=== PATIENT | female | born 1955 | race African-American/Black ===

== ENCOUNTER 2018-11-14 23:10 | Inpatient (IN) | payer OTHER ==
[~2018-11-14] VITALS: Ht 160 cm; Wt 113.4 kg
--- NOTE | ~2018-11-14 | O ---
[facility] [place] [address] OPERATIVE REPORT Name: MADI ELLIOTT KRYSTAL Room #: 451-P [facility] IN M.R.#: [id number] Admission: 11/15/18 Attend Phys: Winifred Colbert Discharge: Date of : 59 Report #: [id number] THIS REPORT FOR: //name// CC: FAM unknown Winifred Sayra Luna DATE OF SERVICE: 11/15/2018 PREOPERATIVE DIAGNOSIS: Left trimalleolar ankle fracture dislocation. POSTOPERATIVE DIAGNOSIS: Left trimalleolar ankle fracture dislocation. PROCEDURE: 1. ORIF, left medial and lateral malleolus. 2. Closed treatment posterior malleolus fracture. SURGEON: Delano Luna MD. FACILITY ENVIRONMENTAL TECHNICIAN: Trish Martinez PA-C INDICATION FOR FACILITY ENVIRONMENTAL TECHNICIAN: Throughout the case, extensive retraction and manipulation of the ankle was required. This was afforded to me by my commercial lending assistant. ANESTHESIA: General endotracheal. IMPLANTS: Synthes 8-hole one-third tubular plate for lateral malleolus fracture fixation and cancellous screws x 2 for medial malleolus for fracture fixation. TOURNIQUET TIME: Approximately 50 minutes. COMPLICATIONS: None. SPECIMENS: None. CONDITION UPON LEAVING THE OPERATING ROOM: Stable. 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 After discussion with her, she elected for ORIF. DESCRIPTION OF PROCEDURE: Risks, benefits, alternatives, complications were discussed in detail with the patient including but not limited to risk of anesthesia, risk of damage to nerves, arteries, blood vessels, risk for [facility] [address] [place] [address] OPERATIVE REPORT Name: MADI ELLIOTT [place] Room #: 451-P ADM IN M.R.#: [id number] Admission: 11/15/18 Attend Phys: Winifred Colbert Discharge: Date of : 59 Report #: [id number] infection, bleeding, risk for malunion, nonunion, need for reoperation. Informed consent was obtained from the patient. The left ankle was appropriately marked in the preoperative holding area. IV Ancef was given for preoperative antibiotics. She was brought to the operating room and placed in supine position on operating room table. LMA anesthesia was induced. General endotracheal anesthesia was induced without complication. Tourniquet was placed on the left thigh. Left lower extremity was prepped and draped in normal sterile fashion. Timeout was performed properly identifying the patient and procedure as well as the instrumentation and implants. All in the operating room were in agreement. Left lower extremity was exsanguinated, tourniquet was inflated. Tourniquet time was approximately 50 minutes. Standard approach to the lateral malleolus was made with a 10 blade longitudinally and dissection was taken sharply to the fibula. Fibula was dissected anteriorly and posteriorly and the fracture was identified. This is a Muniz C level fracture, and the fracture was held reduced with [id number]-[id number] reduction forceps. An 8-hole one-third tubular plate was then placed on the lateral aspect of the fibula and 3 cortical screws above and below the fracture were placed. After this, attention was turned to the medial malleolus fracture. An incision was made with 10 blade centered over the medial malleolus, and dissection was taken down sharply to the medial malleolus. Fracture site was cleaned out, held reduced with qfvvw-qa-wwhyn reduction forceps. Two 50 mm, 4.0 cancellous screws were then placed up into the medial malleolus for fracture fixation. After this, fluoroscopic imaging was brought in to verify adequate fracture reduction and placement of hardware as was the case. There was a small posterior malleolus fracture that was less than 25% of the joint line, and this was left alone. Intraoperative cotton as well as external rotation test were performed and showed to have a stable syndesmosis. The wounds were thoroughly irrigated with normal saline. Deep fascia was closed with 0 Vicryl, skin was closed with 2-0 Vicryl and 3-0 nylon. Soft dressing of Xeroform, 4 x 4's, Webril and a short leg splint were applied. The patient tolerated this procedure well and went to recovery room under care of anesthesia postoperatively. By: [id number] Delano Luna MD /nt
--- NOTE | ~2018-11-14 | HC ---
[facility] [place] [address] CONSULTATION Name: LEXIMADI KRYSTAL Room #: 451-P ADM IN M.R.#: [id number] Admission: 11/15/18 Attend Phys: Winifred Colbert Discharge: Date of : 59 Report #: [id number] THIS REPORT FOR: //name// CC: FAM unknown Winifred Luna DATE OF SERVICE: 11/15/2018 REASON FOR CONSULTATION: Left ankle fracture. HISTORY OF PRESENT ILLNESS: The patient is a 63-year-old female who was at a friend's house and was drinking to celebrate her birthday. She was walking outside and tripped and fell, twisting her left ankle, brought to the Emergency Room, found to have an ankle fracture dislocation. She had a closed reduction in the Emergency Room and has been admitted for definitive treatment. PAST MEDICAL HISTORY: Hypertension, alcohol intoxication, epigastric abdominal pain, left knee osteoarthritis, obesity. She has had an aortic aneurysm that has been repaired; this was in 2016, a recent breast cancer with lumpectomy and radiation treatment. MEDICATIONS: Have been reviewed on the chart. PHYSICAL EXAMINATION: GENERAL: This is a well-developed, well-nourished female, in no acute distress. She is alert and oriented, pleasant, cooperative with exam. EXTREMITIES: Examination of left lower extremity shows her to have a short leg splint in place. She can wiggle her toes and has sensation to light touch. Splint was not taken down. DIAGNOSTIC DATA: X-ray examination of the left ankle shows her to have a left Muniz C fibular fracture with medial malleolus fracture and a small posterior malleolus fracture that initially was dislocated and now is reduced. ASSESSMENT: Left trimalleolar ankle fracture dislocation with syndesmosis injury. PLAN: Discussed with her treatment options. I am recommending that we do ORIF of her ankle this morning. We will have her on for around 10:30 or 11:00 this morning. She is to continue to be n.p.o. Risks, benefits, alternatives, complications were discussed with her. She is understanding and wishes to proceed. [facility] [address] [place] [address] CONSULTATION Name: MADI ELLIOTT [place] Room #: 451-P [facility] IN M.R.#: [id number] Admission: 11/15/18 Attend Phys: Winifred Colbert Discharge: Date of : 59 Report #: [id number] Thank you for allowing us to participate in care of the patient. By: [id number] Delano Luna MD /manisha
[~2018-11-14 23:10] MED LIST: ACCURETIC 20-11 EACH PO; ACETAMINOPHEN325 M1 PO; CADUET 10 MG-11 EACH PO; COLACE 100 MG100 MG PO; HTN MED; HYDROCODON-ACE1 EAC7 PO; IBUPROFEN 600600 M1 PO; IBUPROFEN 800800 MG PO; LISINOPRIL10 MG PO; NEXIUM40 MG PO; NORCO 5-325 TA1 EACH PO; PERCOCET 5-3251 EACH PO; PREDNISONE 20 M20 MG PO; SENNA PO
[2018-11-14 23:11] VITALS: BP 218/106
[2018-11-15] VITALS (10 sets, daily range): BP systolic 117–233; BP diastolic 59–142
[2018-11-15 01:02] LABS: HEMATOCRIT 39.8 % (37.0-47.0); HEMOGLOBIN 13.1 gm/dL (12.0-15.0); MCH 30.7 pg (26.0-34.0); MCHC 32.8 g/dL (28.0-37.0); MCV 93.5 fL (80.0-100.0); RBC 4.26 mil/uL (4.20-5.00); RDW 15.5 % (10.5-14.5)
[2018-11-15 01:07] LABS: AMP/METHAMP Negative (Negative); BARBITURATES Negative (Negative); BENZODIAZEPINES Negative (Negative); COCAINE Negative (Negative); METHADONE Negative (Negative); OPIATES Negative (Negative); PCP Negative (Negative)
[2018-11-15 01:10] LABS: CALCIUM 9.3 mg/dL (8.5-10.1); CREATININE 0.8 mg/dL (0.6-1.0); POTASSIUM 3.6 mmol/L (3.5-5.1)
[2018-11-15 01:44] LABS: APTT 25.8 Seconds (24.5-32.8); PROTIME 9.6 Seconds (9.3-11.4)
--- NOTE | 2018-11-15 02:25 | NUR ---
100ML NS OF 500ML USED FO4R PROCEDURE
--- NOTE | 2018-11-15 06:26 | NUR ---
PT ARRIVED TO FLOOR BY TRANSPORT DUE TO PTS MENTAL STATUS LITTLE INFORMATION PROVIDED FOR HEALTH HX PT SLEPT MOST OF THE NIGHT NO ISSUES OVERNIGHT.
[2018-11-15] MEDS ORDERED: CLONIDINE HCL0.2 M2 PO (06:45)
[2018-11-15] MEDS ORDERED: CARVEDILOL3.125 MG PO (06:45)
[2018-11-15] MEDS ORDERED: COZAAR 25 MG TA25 M1 PO (06:45)
--- NOTE | 2018-11-15 18:19 | NUR ---
PT HAD SURGERY ON ANKLE THIS MORNING, RETURNED TO UNIT THIS AFTERNOON. PT WAS EXTREMELY NAUSEOUS UPON RETURN, MEDICATION OFFERED RELIEF AFTER SOME TIME. PT'S BP HAS BEEN ELEVATED SINCE RETURN, NOTIFIED PHYSICIAN AND MEDS GIVEN. BP HAS DECREASED HOWEVER IT STILL REMAINS ELEVATED (170'S). WILL CONTINUE TO MONITOR.
--- NOTE | 2018-11-15 19:37 | NUR ---
PT'S BP CONTINUES TO BE ELEVATED. CALLED SALES DEPARTMENT CLERK AND IMPLEMENTED NEW ORDERS FOR CONTROL.
[2018-11-16 02:39] VITALS: BP 177/98
[2018-11-16 04:34] VITALS: BP 159/83
[2018-11-16 05:40] LABS: HEMATOCRIT 36.8 % (37.0-47.0); HEMOGLOBIN 11.7 gm/dL (12.0-15.0)
--- NOTE | 2018-11-16 06:24 | NUR ---
Assumed care at 1840. Gave pt some hydralazine for sbp greater than 160. SBP has been consistantly staying in 170s. Pt denies chest pain. Pt refused fluids because she noticed swelling on the left hand. Dressing on left ankle CDI. No identified needs at the moment. Call light within reach. Will continue to monitor.
[2018-11-16 07:43] VITALS: BP 152/68
--- NOTE | 2018-11-16 08:44 | EKG ---
[facility] [place] [address] [place] [address] ELECTROCARDIOGRAM REPORT Name: LEXIMADIKRYSTLE ZAYASSA Room #: 451-P ADM IN M.R.#: [id number] Admission: 11/15/18 Attend Phys: Winifred Colbert Discharge: Date of : 59 Report #: [id number] THIS REPORT FOR: //name// [facility] ED Test Date: 2018-11-15 Test Time: 00:57:42 Pat Name: MADI ELLIOTT Department: Room: [facility] Gender: F Medical Underwriter: DOROTHY : 1955 Requested By: Bret Sainz Order Number: [id number] MD: Jose Esqueda Measurements Intervals Clark Rate: 69 P: 49 NM: 172 QRS: 21 QRSD: 91 T: 85 QT: 423 QTc: 454 Interpretive Statements Sinus rhythm Anteroseptal infarct, age indeterminate Compared to ECG 12/14/2015 16:07:45 Septal Q waves are now present Sinus tachycardia no longer present Electronically Signed On 11-16-2018 8:44:32 CUSTOMER SERVICE SALES CONSULTANT by Jose Esqueda [email or web address] <ELECTRONICALLY SIGNED> By: Jose Esqueda MD, [facility] 11/16/18 0844 0057 0057 Jose Esqueda MD, [facility] /EPI
--- NOTE | 2018-11-16 13:32 | NUR ---
PT ADMITTED RELATED TO LT ANKLE FX S/P ORIF. CM REVEIWED CHART AND SPOKE WITH CARE TEAM. CM MET WITH PT AT BEDSIDE THIS DAY. PT IS A&O X4. CM ROLE INTRODCUED. PT INDICATED SHE LIVES IN A HOUSE WITH HER SPOUSE, SISTER, AND GRANDSON. 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 PT INDICATED HER PCP IS DR. KOVACS. PT INDICATED NO DME OR HH HX. PT INDICATED SHE WAS INTERESTED IN GOING FOR A POST ACUTE CARE STAY UPON DC. CM INDICATED THAT BECAUSE OF PT'S INSURANCE SHE WOULD BE ABLE TO GO FOR ACUTE REHAB. PT INDICATED SHE WAS INTERESTED IN 5N. CONSULT WAS ENTERED. CM TO FOLLOW INDICATED WITH DC PLANNING.
--- NOTE | 2018-11-16 15:22 | NUR ---
[facility] ASSESSED PT FOR POSSIBLE ADMISSION AND DETERMINED THAT PT WOULD BE A GOOD CANDIDATE. THEY HAVE SUBMITTED FOR AUTH THROUGH MEDICAID.
--- NOTE | 2018-11-16 15:55 | NUR ---
[facility] RECIEVED MEDICAID AUTH FOR PT TO ADMIT THIS EVENING. CM NOTIFIED PT AND SHE IS AWARE AND AGREEABLE. NO OTHER CM INTERVENTION INDICATED AT THIS TIME. REPORT TO BE CALLED TO .
[2018-11-16] MEDS ORDERED: COREG6.25 MG PO (15:58)
[2018-11-16] MEDS ORDERED: COLACE100 MG PO (15:58)
[2018-11-16 16:28] VITALS: BP 132/56
[2018-11-16 17:28] VITALS: BP 132/56
== END 2018-11-16 17:50 | DRG 493 ==
LOC: ER 23:10 → EROBS 11-15 01:25 → 4W 11-15 02:33
PROVIDERS: Emergency Medicine; Orthopaedic Surgery; ADMIT Hospitalist
PROC: 0QSHXZZ Reposition Left Tibia, External Approach (ICD-10-PCS; principal; 2018-11-15)
PROC: 0QSH04Z Reposition Left Tibia with Internal Fixation Device, Open Approach (ICD-10-PCS; principal; 2018-11-15)
PROC: 0QSKXZZ Reposition Left Fibula, External Approach (ICD-10-PCS; principal; 2018-11-15)
PROC: 0QSK04Z Reposition Left Fibula with Internal Fixation Device, Open Approach (ICD-10-PCS; principal; 2018-11-15)
PROC: 2W6 Placement, Anatomical Regions, Traction (ICD-10-PCS; principal; 2018-11-15)
DX: S82.852A Displaced trimalleolar fracture of left lower leg, initial encounter for closed fracture (principal); Z68.41 Body mass index [BMI] 40.0-44.9, adult; Y93.01 Activity, walking, marching and hiking; W01.0XXA Fall on same level from slipping, tripping and stumbling without subsequent striking against object, initial encounter; I10 Essential (primary) hypertension; F10.120 Alcohol abuse with intoxication, uncomplicated; K21.9 Gastro-esophageal reflux disease without esophagitis; M17.12 Unilateral primary osteoarthritis, left knee; E66.9 Obesity, unspecified; Z85.3 Personal history of malignant neoplasm of breast; Z92.3 Personal history of irradiation; Z85.41 Personal history of malignant neoplasm of cervix uteri; Y92.89 Other specified places as the place of occurrence of the external cause; Y99.8 Other external cause status; Z79.899 Other long term (current) drug therapy
CPT/HCPCS: 10045; 50010; 50101; 50386; 51131; 51272; 56527; 56528; 56667; 57091; 57181; 62110; 62900; 65130; 70005

== ENCOUNTER 2018-11-16 16:15 | Inpatient (IN) | payer OTHER ==
[~2018-11-16] VITALS: Ht 160 cm; Wt 99.8 kg
[~2018-11-16 16:15] MED LIST changes: +CARVEDILOL3.125 MG PO; +CLONIDINE HCL0.2 M2 PO; +COLACE100 MG PO; +COREG6.25 MG PO; +COZAAR 25 MG TA25 M1 PO
[2018-11-16 17:45] VITALS: BP 142/63
[2018-11-16 18:41] VITALS: BP 142/63
--- NOTE | 2018-11-16 20:23 | NUR ---
GOT REPORT FROM ARMIN (4W) OVER PHONE. PT ARRIVED ON BEDSIDE CHAIR ON UNIT. PT A&O X4. PT STATES NO PAIN AT THE TIME. PT HAS NO S/S OF DISTRESS. PT ORIENTED TO UNIT AND STAFF. PT ADM PACKET GIVEN AND FALL CONTRACT SIGNED. PT FAMILY AT BEDSIDE. PT L LEG CAST C/D/I. PT LOVE IN PLACE. PT CALL LIGHT WITHIN REACH AND PT CONTINUES TO BE MONITORED FOR SAFETY.
[2018-11-16 21:02] VITALS: BP 121/51
--- NOTE | 2018-11-17 01:36 | NUR ---
PT ALERT AND ORIENTED X 4. TRANSFERRED TO BED AT HS WITH MAX ASSIST X 2. NWB LLE. CAST INTACT TO LLE. TOES WARM, PINK, MOBILE. DENIES NUMBNESS AND TINGLING. LLE ELEVATED ON PILLOWS. ICE TO LLE. BLOOD PRESSURE 121/51 AT HS. PT REFUSED CLONIDINE. LOVE PATENT DRAINING ADEQUATE AMTS CLEAR YELLOW URINE. PT C/O PAIN IN HEAD AND NECK. PERCOCET GIVEN ORDERED. PT SLEEPING UPON REASSESSMENT. FAMILY MEMBER HERE DURING THE NIGHT. BED ALARM ON FOR SAFETY. PT APPEARS TO BE SLEEPING ON HOURLY ROUNDS.
[2018-11-17 02:03] VITALS: BP 121/51
[2018-11-17 06:31] LABS: HEMOGLOBIN 11.1 gm/dL (12.0-15.0); MCH 29.8 pg (26.0-34.0); MCHC 31.8 g/dL (28.0-37.0); MCV 93.7 fL (80.0-100.0); RBC 3.74 mil/uL (4.20-5.00); RDW 15.3 % (10.5-14.5); WBC 9.4 thou/uL (4.0-11.0)
[2018-11-17 06:38] LABS: CALCIUM 9.1 mg/dL (8.5-10.1); CREATININE 0.9 mg/dL (0.6-1.0)
[2018-11-17 07:54] VITALS: BP 182/110
[2018-11-17 10:22] VITALS: BP 115/65
--- NOTE | 2018-11-17 11:40 | NUR ---
cm visited with pt at bedside, eyes open and closed during visit. intro to cm, team meeting and dcp. " live home with , son and grandson, independent when feeling ok. 7 steps up to house, 5 steps up to bedroom. manage own medication, drive vehicle. will cont following as needed for dc needs.
--- NOTE | 2018-11-17 14:04 | NUR ---
team meeting, reccomendation : re team, cont nwb rt ankle
[2018-11-17 19:54] VITALS: BP 135/80
--- NOTE | 2018-11-17 20:19 | NUR ---
ASSUMED CARES AT 0700. PT AWAKE, ALERT AND ORIENTED*4. C/O LLE PAIN. LLE CAST REMAIN INTACT, NO DRAINAGE. LLE TOES CAP REFILL <3SEC, MILD EDEMA AROUND FOOT OF LLE. VITALS REMAIN STABLE. IV DC'D. LOVE DC'D PER PHYSICIAN ORDER, TO BEGIN VOIDING TRIAL. BP ELEVATED THIS AM, BP LOWERING MEDS ADMINISTERED, BP STABLE AFTER. UP WITH 1 PERSON MAX ASSIST TRANSFER. Q1H VISUAL CHECKS. CALL LIGHT WITHIN REACH. [facility]
--- NOTE | 2018-11-18 04:04 | NUR ---
ASSUMED CARE OF PT AT 1915. PT ALERT AND ORIENTED X4. PIVOT TRANSFER TO WHEELCHAIR, THEN PIVOT TO TOILET. CAST INTACT ON LLE; TOES PINK AND WARM WITH GOOD CAP REFILL. PT ABLE TO MOVE TOES EASILY, GOOD SENSATION. CONTINUES NWB LLE. FAMILY MEMBER AT BEDSIDE THROUGH THE NIGHT. VOIDING PER TOILET WITHOUT DIFFICULTY. HAS BEEN AWAKE MOST OF THE NIGHT THUS FAR, STATING THAT IS HER NORMAL ROUTINE. CHECKED ON HOURLY ROUNDS. BED ALARM ON.
[2018-11-18 08:40] VITALS: BP 156/90
--- NOTE | 2018-11-18 12:23 | NUR ---
ASSUMED CARE AT 0700. PATIENT IS ALERT AND ORIENTED X4. RESEARCH CENTER PARTNER ARE EQUAL. PATIENT HAS SPINT/CAST ON HER LEFT LOWER EXTREMITITY. DO NOT CHANGE OR DO ANYTHING TO HER SURICAL SITE. [facility] WILL SEE HER IN 14 DAYS. LUNGS ARE CLEAR. ABD IS SOFT WITH BSX4. UP IN W/C FOR BREAKFAST. FALL AND SAFETY PROTOCOLS IN PLACE. DENIES ANY PAIN AT THIS TIME. CONTINUES TO PROGRESS SLOWLY TOWARDS D/C GOALS. WILL CONTINUE TO MONITER. FAMILY AT BEDSIDE.
--- NOTE | 2018-11-18 14:44 | NUR ---
Patient participated in community reintegration on 11/18/18 with PHYSICAL THERAPY. Refer to documentation by PT.
[2018-11-18 17:00] VITALS: BP 122/63
[2018-11-18 19:45] VITALS: BP 121/72
[2018-11-18 21:05] VITALS: BP 137/67
--- NOTE | 2018-11-19 03:53 | NUR ---
ASSUMED CARE OF PT AT 1915. PT ALERT AND ORIENTED X4. CAST INTACT ON LLE. TOES ON RIGHT FOOT ARE WARM TO TOUCH, PINK WITH GOOD CAP REFILL. PT ABLE TO MOVE TOES EASILY. PIVOT TRANSFERS TO WHEELCHAIR AND TO TOILET WITH ASSIST OF ONE USING GAIT BELT. OXYCODONE GIVEN PO FOR PAIN. C/O INDIGESTION, ORDER FOR TUMS OBTAINED. CHECKED ON HOURLY ROUNDS. FALL PRECAUTIONS IN PLACE.
[2018-11-19 08:38] VITALS: BP 142/84
--- NOTE | 2018-11-19 14:47 | NUR ---
ASSUMED CARE AT 0700. PATIENT IS ALERT AND ORIENTED X4. REPORTED DIDN'T SLEEP WELL LAST NIGHT. C/O LEFT ANKLE FX 8/10, PRN PAIN MED. PAIN IS 3/10 NOW. REASSESSMENT PER CHART. EXECUTIVE KITCHEN MANAGER ARE EQUAL. PATIENT HAS SPLINT/CAST ON HER LEFT LOWER EXTREMITITY. TOE WARM, PINK, HAS A GOOD CAP REFILL. DO NOT CHANGE OR DO ANYTHING TO HER SURICAL SITE PER [facility]. LUNGS ARE CLEAR. ABD IS SOFT WITH BSX4. UP IN W/C FOR MEALS. FALL AND SAFETY PROTOCOLS IN PLACE. PIVOT TRANSFER CHAIR<>BED, AND ASSIST TO BATHROOM. HAD BM THIS AM. OFFERED SUPPORTIVE CARE. ENCOURAGED PT TO VOICE HER NEEDS. NOTIFIED CANDIDO THAT PT NEEDS SLEEP MED. TRAZODONE ORDER OBTAINED. WILL GIVE REPORT TO NIGHT NURSE TO MONITOR SLEEP AND GIVE MED ORDRED. MEDS GIVEN, LAB REVIEWED. HER GOAL IS TO CONTINUE TO PROGRESS TOWARDS D/C GOALS. WILL CONTINUE TO MONITOR. FAMILY AT BEDSIDE.
[2018-11-19 20:20] VITALS: BP 129/70
--- NOTE | 2018-11-20 05:26 | NUR ---
PATIENTS CARES WERE ASSUMED AT SHIFT CHANGE. PATIENT WAS ASSESSED AND MEDS WERE PASSED. PATIENT DID SLEEP MOST OF THE SHIFT IN THE CHAIR IN HER ROOM. PATIENT STATED IT WAS MORE COMFORTABLE. HOURLY ROUNDING WAS DONE. PATIENT DID APPER TO BE SLEEPING. THE BED ALARM WAS ON AND THE BE IS IN A LOW AND LOCKED POSITION.
[2018-11-20 09:24] VITALS: BP 146/80
--- NOTE | 2018-11-20 10:24 | NUR ---
ASSUMED CARE AT 0700. PATIENT IS ALERT AND ORIENTED X4. REPORTED SLEEP BETTER BUT WANTS TO INCREASE TRAZODONE. C/O LEFT ANKLE FX 8/10, PRN PAIN MED. PAIN IS 5/10 NOW. C/O RIGHT LEG PAIN 9/10 FROM ARTHRITIS, REQUESTS FOR VOLARENE GEL. REASSESSMENT PER CHART. RN LACTATION CONSULTANT ARE EQUAL. PATIENT HAS SPLINT/CAST ON HER LEFT LOWER EXTREMITITY. TOE WARM, PINK, HAS A GOOD CAP REFILL. DO NOT CHANGE OR DO ANYTHING TO HER SURICAL SITE PER [facility]. LUNGS ARE CLEAR. ABD IS SOFT WITH BSX4. UP IN RECLINER. HAD PT THIS AM AND TOLERATE PAIN THIS AM. FALL AND SAFETY PROTOCOLS IN PLACE. PIVOT TRANSFER CHAIR<>BED, AND ASSIST TO BATHROOM. OFFERED SUPPORTIVE CARE. VSS ON RA. ENCOURAGED PT TO VOICE HER NEEDS. NOTIFIED CANDIDO TO INCREASE TRAZODONE AND ORDER FOR VOLARENE GEL. HER GOAL IS TO WORK ON HER INDEPENDENT SO SHE CAN TAKE CARE OF HERSELF. CONTINUE TO PROGRESS TOWARDS D/C GOALS. WILL CONTINUE TO MONITOR.
[2018-11-20 20:28] VITALS: BP 138/63
--- NOTE | 2018-11-21 05:30 | NUR ---
ASSUMED CARE OF PATIENT AROUND 1900. PATIENT IN CHAIR FOR MOST OF SHIFT, MOVED TO BED AROUND 0200. PASSING FLATUS BUT NOT READY FOR A BM YET. C/O ARTHRITIS IN BOTH KNEES, RIGHT WORSE THAN LEFT. PAIN MEDICATION ADMINISTERED AROUND 2200, PATIENT HAS NOT REQUESTED ANY SINCE. PATIENT AMBULATES W/ MINIMAL ASSISTANCE, ABLE TO FOLLOW WIEGHT BEARING PRECAUTIONS. PATIENT IS PROGRESSING TOWARD GOALS, WILL CONTINUE TO MONITOR.
[2018-11-21 08:46] VITALS: BP 135/72
--- NOTE | 2018-11-21 11:01 | NUR ---
ASSUMED CARE AT 0700. PATIENT IS ALERT AND ORIENTED X4. PATIENT MOVES UPPER EXTREMITIES. PATIENT HAS LEFT L.E. CAST TO HER ANKLE. PATIENT IS NON-WT BEARING ON LEFT ANKLE. LUNGS ARE CLEAR. ABD IS SOFT WITH BSX4. UP IN BED FOR BREAKFAST. PATIENT IS UP WITH WALKER, GAIT BELT AND ASSIST OF1 STAFF TO STAND PIVOT, AND SIT. FALL AND SAFETY PROTOCOLS IN PLACE. TOOK PRN PAIN MED FOR LEFT ANKLE PAIN. UP IN W/C AND OUT WITH P.T. IN THE HALLWAY. CONTINUES TO PROGRESS SLOWLY TOWARDS D/C GOAL. WILL CONTINUE TO MONITER
--- NOTE | 2018-11-21 12:36 | NUR ---
Davis NOTIFIED THIS TRAINING DEVELOPMENT DIRECTOR THAT THE PATIENT WHILE IN PARALLEL BARS WENT DOWN TO HER KNEES. NO INJURY NOTED. PATIENT BACK TO HER ROOM AND UP IN HER RECLINER FOR LUNCH. PRN PAIN MED GIVEN FOR KNEE PAIN. VOLTARIN GEL APPLIED TO KNEES BILATERALLY. WILL CONTINUE TO [facility]SON[facility].
[2018-11-21 20:08] VITALS: BP 157/58
--- NOTE | 2018-11-22 03:46 | NUR ---
Assumed care of pt at 1900. Pt alert and oriented x4. Non-weightbearing on left ankle. Pt refused hs clonidine. Pt pivots to wheelchair, and from wheelchait pivots to toilet. Pt calls appropriately. Will continue to monitor.
[2018-11-22 09:15] VITALS: BP 137/60
[2018-11-22 19:20] VITALS: BP 160/67
--- NOTE | 2018-11-22 19:50 | NUR ---
ASSUMED CARE OF PT AT 0715. PT IS A&OX4. IS ON ROOM AIR. IS STABLE. REPORTS PAIN IN BILAT KNEES & LEFT ANKLE THAT IS BEING MANAGED WITH PAIN MEDS. CAST ON RLE. TOES, COLOR APPROPRIATE FOR RACE. IS ABLE TO WIGGLE & HAS FEELING. EDEMA PRESENT IN BILAT FEET. IS UP WITH 1 ASSIST, GB, STAND PIVOT TO BATHROOM. FALL PRECAUTIONS & HOURLY ROUNDING MAINTAINED. LABS & VITALS REVIEWED. WILL CONTINUE TO MONITOR.
--- NOTE | 2018-11-22 23:57 | NUR ---
PT ASSESSMENT COMPLETED AND VSS. MEDS GIVEN ORDERED AND WELL TOLERATED. UP TO THE BATHROOM WITH ASST/GAIT/PIVOT/WHEELCHAIR - NWB LEFT FOOT. SLEEPING WELL. PRN PAIN MEDICATION HELPFUL. WILL CONTINUE TO MONITOR FREQUENTLY.
--- NOTE | 2018-11-23 07:17 | HC ---
[facility] [place] [address] [place] [address] CONSULTATION Name: MADI ELLIOTT Room #: 512-P ADM IN M.R.#: [id number] Admission: 11/16/18 Attend Phys: Gabriele Duque MD Discharge: Date of : 59 Report #: [id number] THIS REPORT FOR: //name// CC: Gabriele Duque [facility] unknown DATE OF SERVICE: 11/21/2018 NEUROBEHAVIORAL STATUS EXAMINATION ATTENDING PHYSICIAN: Gabriele Duque MD TACKING MACHINE OPERATOR: Curtis Larose, PhD CLINICAL PRESENTATION: The patient is a 63-year-old female admitted to rehabilitation unit at [facility] for evaluation and treatment of a left trimalleolar fracture. The patient was out celebrating a birthday of a friend, was intoxicated and fell on the lawn. She is reported to have twisted her ankle and was unable to stand. The patient reports that her friend was unable to lift her in a standing position and that she then rolled to her car. Emergency assistance was obtained and she was subsequently brought into the hospital through the Emergency Room. PAST MEDICAL HISTORY: Breast cancer, hernia repair, status post left lumpectomy with radiation treatment, aortic dissection repaired in 2015, cervical cancer with cervical conization, hypertension, GERD and history of breast biopsy. Her admitting diagnosis to the rehabilitation unit is a left trimalleolar fracture, status post open reduction and internal fixation on 11/15/2018, no weightbearing on her left lower extremity, gait instability, hypertension, initial alcohol intoxication, now resolved; history of aortic dissection, morbid obesity and gastroesophageal reflux disease. A complete description of her medical condition and history can be found in her medical record. Neuropsychological consultation was requested to provide assistance in the assessment of cognitive and emotional status and to provide recommendations and services. Prior to this most recent admission, she was living independently with her in their home. The patient has 2 children. 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 She reports having gone on disability in 2016 following an aortic dissection. She reports a history of treatment for depression that involved the use of an antidepressant. Infrequent use of alcohol is reported by the patient, however, her self reported use of alcohol is of uncertain accuracy as she reported that the evening that she fell, her consumation of alcohol was in the car after she rolled down the lawn after the libertarian and not [facility] [address] [place] [address] CONSULTATION Name: MADI ELLIOTT [place] Room #: 512-P [facility] IN M.R.#: [id number] Admission: 11/16/18 Attend Phys: Gabriele Duque MD Discharge: Date of : 59 Report #: [id number] during the libertarian. She stated that a friend living with her is an alcoholic. TECHNIQUES UTILIZED: Clinical interview, review of medical records, staff consultation and behavioral observation, mini mental status from 2 standard version and clock drawing. EXAMINATION FINDINGS: The patient is alert and cooperative with the assessment. She accurately described events surrounding her admission. There is no evidence of aphasia. Her thoughts are logical and goal oriented. There are no auditory or visual hallucinations. She does not report amnesia surrounding the event. She has an accurate memory of events immediately preceding, following and during her initial hospitalization. Poor judgment is evident in regard to her rolling to her car rather than obtaining medical help in the field. She describes her symptoms to include inconsistent sleep, anxiety and depression. Continued problems with pain are reported. She does not describe difficulty with appetite or energy level. Her performance on the MMSE 2 brief version is within normal limits with a raw score of 15/16. MMSE 2 standard version within normal limits with a raw score of 28/30. The patient missed one item for immediate recall and one item on serial 7's. Clock drawing was within normal limits. The patient is presenting with anxiety and depression in regard to events surrounding her fall. Continued pain is reported. DIAGNOSTIC IMPRESSION: Adjustment disorder with anxiety and depressed mood. RECOMMENDATIONS: The patient does not report excessive use of alcohol. However, family members have not yet been contacted in order to obtain an informants observation regarding alcohol use. Treatment program for anxiety and depression to utilize an antidepressant medication. She would also benefit from the use of relaxation techniques and strategies for pain management. Counseling following her discharge from inpatient treatment would also be helpful. Thank you very much for allowing me to provide the consultation on this patient. <ELECTRONICALLY SIGNED> By: Curtis Larose, PhD 11/23/18 0717 1457 [id number] Curtis Larose, PhD /nt
[2018-11-23 09:39] VITALS: BP 104/53
--- NOTE | 2018-11-23 14:47 | NUR ---
ASSUMED CARE OF PT AT 0715. PT IS A&OX4. ABLE TO VOICE HER NEEDS. B/P WAS LOW THIS AM. RECHECK B/P AND GAVE MORNING MEDS ORDRED. REPORTS PAIN IN BILAT KNEES & LEFT ANKLE THAT IS BEING MANAGED WITH PAIN MEDS AND VOLTAREN GEL. CAST ON RLE. TOES, COLOR APPROPRIATE FOR RACE. IS ABLE TO WIGGLE & HAS FEELING. EDEMA PRESENT IN BILAT FEET.PT UP WITH 1 ASSIST, GB, STAND PIVOT TO BATHROOM. MARTHA MADE ROUND ON PT AND ORDERD FOR XRAY ON RIGHT KNEE. NO ACUTE FX OR DISLOCATE NOTED. BED PRESSURE REDUCTION ORDERED. ENCOURAGED TO TURN SELF IN BED AT NIGHT. PT HAS BEEN UP TO BATHROOM DURING DAY AND CONTINUE TO WORK WITH THERAPY. PIVOT TRANSFER BED, RECLINER, BATHROOM<> WC FALL PRECAUTIONS & HOURLY ROUNDING MAINTAINED. WILL CONTINUE TO MONITOR.
[2018-11-23 17:02] VITALS: BP 141/74
[2018-11-23 19:42] VITALS: BP 158/95
--- NOTE | 2018-11-24 01:10 | NUR ---
PT ALERT AND ORIENTED X 4. MAX ASSIST X 1 TO W/C AND THEN TO BATHROOM. LEFT ANKLE CAST INTACT. TOES WARM, PINK, MOBILE. DENIES NUMBNESS OR TINGLING. NWB LLE WHEN UP. PT C/O PAIN IN LEFT ANKLE. PERCOCET GIVEN AT HS AND PT SLEEPING UPON REASSESSMENT. BED ALARM ON FOR SAFETY. PT CHECKED ON HOURLY ROUNDS.
[2018-11-24 04:05] LABS: CALCIUM 8.9 mg/dL (8.5-10.1); CREATININE 0.8 mg/dL (0.6-1.0); POTASSIUM 4.6 mmol/L (3.5-5.1); URIC ACID* 4.4 mg/dL (2.6-7.2)
[2018-11-24 08:00] VITALS: BP 177/90
--- NOTE | 2018-11-24 11:46 | NUR ---
ASSUMED CARE OF PT AT 0715. PT IS A&OX4. ABLE TO VOICE HER NEEDS. C/O KNEES & LEFT ANKLE RATES PAIN 7/10, GAVE PRN HYDROCODON. APPLIED VOLTAREN GEL ORDERED. PAIN IS MANGABLE AT 5/10. CAST ON RLE. TOES, COLOR APPROPRIATE FOR RACE. PT ABLE TO WIGGLE & HAS FEELING. EDEMA PRESENT IN BILAT FEET.PT UP WITH 1 ASSIST, GB, STAND PIVOT TO BATHROOM. LOW AIR MATRESS ORDERED. ENCOURAGED TO TURN SELF IN BED AT NIGHT. PT HAS BEEN UP TO BATHROOM DURING DAY AND CONTINUE TO WORK WITH THERAPY. OT GAVE PT SPONGE BATH TODAY. PT HAD BM. PIVOT TRANSFER BED, RECLINER, BATHROOM<> WC FALL PRECAUTIONS & HOURLY ROUNDING MAINTAINED. WILL CONTINUE TO MONITOR.
[2018-11-24 12:00] VITALS: BP 117/59; BP 171/79
--- NOTE | 2018-11-24 12:17 | NUR ---
team meeting recommendation : wheel chair, home health nurse for medication manage and monitor swelling. dc . ot to discuss shower chair, bsc. pt wanted to talk about transportation home, pt has medicaid, discussed [employer] for transport. u
[2018-11-24 17:15] VITALS: BP 145/84
[2018-11-24 19:25] VITALS: BP 128/62
--- NOTE | 2018-11-25 04:05 | NUR ---
assumed care at approx 1900 evening 11/24. pt alert and oriented x4, appropriate and cooperative. pt sitting up in bed at change of shift talking on phone. pts spouse at bedside. pt took hs meds with water tolerating well. pt with left lower leg elevated on pillow. pt appears to be sleeping soundly with hourly rounding checks. bed alarm on and call light in reach. will continue to monitor.
--- NOTE | 2018-11-25 08:57 | NUR ---
FAXED REFERRAL TO [facility] SPOKE WITH BRAYAN IN ADM. SHE RECEIVED REFERRAL AND REVIEWED AND THEY CANNOT ACCEPT PT. THEY ARE AT CAPACITY WITH MEDICAID. NOTIFIED [facility] OF REFERRAL AND SPOKE WITH DEVIN IN ADM. SHE WILL REVIEW PT. IS NEEDING RN ONLY ANTICIPATE DC 11/27. DCP TO FOLLOW.
[2018-11-25 09:00] VITALS: BP 146/73
--- NOTE | 2018-11-25 14:18 | NUR ---
ASSUMED CARE AT SHIFT CHANGE. PT A/O X 4, ANXIOUS AT TIMES REGARDING THERAPY AND PAIN IN LEG. PT COOPERATIVE WITH ALL TREATMENTS THOUGH. ASSESSMENTS PER CHART. LABS NOTED. PT RESTING UP IN CHAIR THIS AFTERNOON. NAD NOTED. PROGRESSING WELL TOWARDS POC GOALS.
--- NOTE | 2018-11-25 15:22 | NUR ---
Pt PARTICIPATED IN COMMUNITY REINTEGRATION WITH OT ON 11/25/18, PLEASE REFER TO OT DOCUMENTATION
[2018-11-25 20:41] VITALS: BP 153/88
--- NOTE | 2018-11-26 01:37 | NUR ---
PT ASSESSMENT COMPLETED AND VSS. MEDS GIVEN ORDERED AND WELL TOLERATED. FALL PRECAUTIONS IN PLACE. UP TO THE BATHROOM WITH ASST/GAIT/WALKER/WHEELCHAIR TO PIVOT. MODERATE ASST NEEDED. VOIDING WELL. LARGE SOFT FORMED BM AT HS. ASST WITH Q 2 HOUR REPOSITION. PRN SLEEPING MEDICATION WORKING WELL. WILL CONTINUE TO MONITOR FREQUENTLY.
[2018-11-26 08:10] VITALS: BP 116/62
[2018-11-26 11:00] VITALS: BP 120/69
--- NOTE | 2018-11-26 11:40 | NUR ---
ASSUMED CARES AT 0700. PT AWAKE, ALERT AND ORIENTED * 4. C/O PAIN IN HER RLE, ANKLE AND KNEE, PAIN MEDICATION ADMINISTERED NEEDED. PT C/O FATIGUE AND SOB AFTER THERAPY THIS AM WHICH RESOLVED WITH REST. PT STATED THAT SHE DOESN'T FEEL READY TO GO HOME TOMORROW R/T WEATHER WELL TRANSFERING INDEPENDENTLY TO CAR, CHAIR/BED, BATHROOM. PT, REHAB PYHSICIAN AND REHAB CO ORDINATOR AWARE. CAST ON LEFT ANKLE REMAINS INTACT. PT UP WITH 1 PERSON MIN ASSIST, PIVOT TRANSFERS. Q1H VISUAL CHECKS. CALL LIGHT WITHIN REACH. FALL PRECAUTIONS IN PLACE
[2018-11-26 11:50] VITALS: BP 184/94
--- NOTE | 2018-11-26 11:56 | NUR ---
Nutrition: pt admit to rehab unit with trimalleolar fracture S/P ORIF. Eating 75-100% of meals on regular diet. Weight hx unavailable. Discharging 11/27. Low risk.
[2018-11-26 20:15] VITALS: BP 155/88
--- NOTE | 2018-11-27 00:45 | NUR ---
PT ALERT AND ORIENTED X 4. UP IN RECLINER AT THIS TIME. APPEARS TO BE SLEEPING SOUNDLY. LLE CAST INTACT. TOES WARM, PINK, MOBILE TO LEFT FOOT. PT C/O PAIN IN LEFT ANKLE AND KNEES AT HS. PERCOCET GIVEN ORDERED. CHAIR ALARM ON FOR SAFETY. PT APPEARS TO BE SLEEPING ON HOURLY ROUNDS.
[2018-11-27 08:00] VITALS: BP 166/91
[2018-11-27] MEDS ORDERED: VOLTAREN GEL 1100 G1 TOP (09:39)
[2018-11-27] MEDS ORDERED: HYDRALAZINE 10M10 MG PO (09:40)
--- NOTE | 2018-11-27 09:47 | NUR ---
ASSUMED CARES AT 0700. PT AWAKE, ALERT AND ORIENTED *4. C/O GRIFFIN KNEE AND LEFT ANKLE PAIN 7/, PAIN MEDICATION ADMINISTERED NEEDED. VITALS REMAINED STABLE. LEFT ANKLE BRACE INTACT, CAPILLARY REFILL <3SEC ON LEFT FOOT, CONTINUES TO HAVE EDEMA IN BLE, SENSATION ON LEFT LLE REMAINS INTACT. PT REMAINS NON-WEIGHT BEARING ON LLE. PT WILL DISCHARGE TO HOME WITH HOMEHEALTH THIS AFTERNOON. PT DC TEACHING TO BE COMPLETED WITH PT. Q1H VISUAL CHECKS. Q2H TURNS. CALL LIGHT WITHIN REACH. FALL PRECAUTIONS IN PLACE
--- NOTE | 2018-11-27 09:49 | NUR ---
cm notified by [employer]tr company truck driver that pt has requested ride home rt concerns that not going to be able to get into home with steps and wc. pt remains non weight bearing status. information passed on to otr company truck driver and pt that can go through [facility] for [facility] ride home, unsure of pt cost and there is usually a 3 hour window on brain picker time. " still need ride home"/mickey. provider plus to deliver wheel chair prior to dc today. [facility] nursing only rt medicaid. wheel chair just deliver to pt.
[2018-11-27 09:53] VITALS: BP 166/91
[2018-11-27 10:19] VITALS: BP 166/91
--- NOTE | 2018-11-27 10:20 | NUR ---
PT. DISCHARGING TODAY TO [facility] VIA [employer] VAN TRIP #[id number] ARRANGED THERE IS A 3 HR WINDOW SO THEY SHOULD BE HERE BY 1315. WALDO RN/SW TO NOTIFY FAMILY AND UNIT.
--- NOTE | 2018-11-27 12:43 | H ---
[facility] [place] [address] HISTORY AND PHYSICAL Name: MADI ELLIOTT KRYSTAL Room #: 512-P [facility] IN M.R.#: [id number] Admission: 11/16/18 Attend Phys: Gabriele Duque MD Discharge: 11/27/18 Date of : 59 Report #: [id number] THIS REPORT FOR: //name// CC: Gabriele Duque [facility] unknown DATE OF SERVICE: 11/16/2018 HISTORY OF PRESENT ILLNESS: This is a 63-year-old female who presented to the Emergency Department after a fall at home. She was out celebrating a birthday and was intoxicated. She tripped on the lawn, fell, twisting her left ankle. She sustained a left trimalleolar fracture. She was seen in consultation by Orthopedics, Dr. Luna on 11/15/2018. She went under a left medial and lateral malleolus ORIF with closed treatment of the posterior malleolus fracture. She is in a hard cast and is no weightbearing to the left lower extremity. Due to her decline in functional mobility, she is admitted to acute inpatient rehabilitation for physical and occupational therapies prior to returning home. Today, she reports pain a 7/10 in the left ankle. Her medications do give her some relief. She denies chest pain or shortness of air. She does have a productive cough with thin yellow sputum at times. She denies abdominal pain or nausea. She does have constipation and she is taking medications for. She denies dysuria. She denies other arthritic or joint pains. PAST MEDICAL HISTORY: Hernia repair 11/2013; breast cancer, status post left lumpectomy and radiation treatment; aortic dissection repaired 2015; cervical cancer with cervical conization; hypertension; GERD; history of breast biopsy. HABITS: No illicit drug use, no tobacco use, alcohol on social occasions. CODE STATUS: Full code. SOCIAL HISTORY: The patient is . She lives at home with her and adult son. The patient does not work. She was independent with ADLs. She tells me she could perform her IADLs; however, she does not like to and so, her family takes care of them for her. She utilized no gait aid premorbidly. She has 4 entry stairs into her home and 4 stairs inside the home to her bedroom and bathroom. She was driving premorbidly. REVIEW OF SYSTEMS: Remainder of her 12-point review of systems is negative except as listed in HPI. PHYSICAL EXAMINATION: VITAL SIGNS: Blood pressure 182/110, respirations 18, pulse of 102, temperature 36.6. She is 99% oxygen on room air. GENERAL: She is awake, alert. She is oriented x 4. She is in no acute [address] [address] HISTORY AND PHYSICAL Name: MADI ELLIOTT [place] Room #: 512-P [facility] IN M.R.#: [id number] Admission: 11/16/18 Attend Phys: Gabriele Duque MD Discharge: 11/27/18 Date of : 59 Report #: [id number] distress. She is on room air. HEAD: Normocephalic. EYES: EOMs are intact. No icterus. ENT: No sinus tenderness, no rhinorrhea. NECK: No lymphadenopathy. CARDIAC: Regular rate and rhythm, S1, S2. No gallops or murmur. CHEST: Lungs are clear to auscultation bilaterally. No crackle, no wheeze. ABDOMEN: Morbid obesity. Bowel sounds are positive, soft, nontender, nondistended. GENITOURINARY: No CVA tenderness. EXTREMITIES: She has functional range of motion of her bilateral upper extremities. No clonus. Upper extremity strength is grossly 4/5. No clonus bilateral lower extremity. Left is in the cast. Neurovascular is intact. She is able to wiggle her toes in the cast. She has trouble lifting the left lower extremity antigravity, right lower extremity functional range of motion, able to lifting to gravity. Negative Homans sign. No edema. Sit to stand with min assist. She is min assist for 3 stairs. Bathing and lower body dressing is mod assist. SKIN: Warm, dry and intact. NEUROLOGIC: Cranial nerves 2-12 grossly intact. PSYCHIATRIC: Pleasant affect. ALLERGIES: No known drug allergies. MEDICATIONS: Lovenox 40 mg subQ at bedtime, Colace 100 mg twice a day, mag citrate one time p.r.n. constipation, lorazepam 0.5 mg q.8h. p.r.n., hydralazine 10 mg q.6h. p.r.n., Protonix 40 mg twice a day, atorvastatin 10 mg daily, Norvasc 10 mg daily, carvedilol 6.25 mg twice a day, Colace 100 mg at bedtime, clonidine 0.2 mg twice a day, Percocet 1 tablet q.4h. p.r.n., senna p.r.n. LABORATORY DATA: From 11/17/2018, sodium 130, potassium 4.0, BUN 16, creatinine 0.9, glucose 123. WBC is 9.4, hemoglobin 11.1, hematocrit 35.0, platelets 221. IMPRESSION: 1. Left trimalleolar fracture, status post open reduction internal fixation on 11/15/2018. No weightbearing on the left lower extremity. 2. Gait instability. 3. Hypertension. 4. Initial ETOH intoxication, now resolved with no signs of withdrawal. 5. History of aortic dissection. 6. Morbid obesity. 7. Gastroesophageal reflux disease. PLAN: The patient has been admitted to acute inpatient rehabilitation unit for physical and occupational therapies. She will have hospitalist services following for medical management. She will follow up with Orthopedic Services [facility] [address] [place] [address] HISTORY AND PHYSICAL Name: MADI ELLIOTT [place] Room #: 512-P [facility] IN .R.#: [id number] Admission: 11/16/18 Attend Phys: Gabriele Duque MD Discharge: 11/27/18 Date of : 59 Report #: [id number] in 2 weeks. We will defer to them for any dressing change orders needed, discontinue her Rees catheter this morning and start voiding trial, bladder scan after 6 hours if no void noted by Hospitalist Services if greater than 400 mL. She will be on a regular diet. She has Lovenox for DVT prophylaxis, will possibly need a knee scooter, I will work on that. She will have social work services following for discharge planning needs. She will have a team conference today on Friday. Please see orders. <ELECTRONICALLY SIGNED> By: CHRISTINE Alejo 11/27/18 1243 [id number] CHRISTINE Alejo /nt
--- NOTE | 2018-11-29 17:17 | NUR ---
AT APPROXIMATELY 1710 THIS NURSE RECEIVED A CALL FROM [facility], HAND REAMER FROM [facility] AT CONTACT NUMBER TO VERIFY QUANTIY OF HYDRALAZINE AND PERCOCET 7.5/325 #[address] Bayron MITCHELL. THIS NURSE CONTACTED DR. MITCHELL TO VERIFY ORDER. DR. FOWLER APPROVED FOR HYDRALAZINE FOR A 30 DAY SUPPLY & PERCOCET 5/325MG #15. THIS NURSE RETUNRED CALL TO [facility] TO VERIFY MEDICATION & QUANT. [facility] STATED, "AFTER THE MAN WAS TOLD THAT WE WERE CALLING THE DOCTOR TO VERIFY THE MEDICATION HE TOOK THE SCRIPTS & SAID THAT HE WAS GOING TO FILL THEM SOMEWHERE ELSE". THIS NURSE THEN NOTIFIED DR. MITCHELL.
--- NOTE | 2018-12-01 15:48 | H ---
[facility] [place] [address] HISTORY AND PHYSICAL Name: MADI ELLIOTT KRYSTAL Room #: 512-P [facility] IN M.R.#: [id number] Admission: 11/16/18 Attend Phys: Gabriele Duque MD Discharge: 11/27/18 Date of : 59 Report #: [id number] THIS REPORT FOR: //name// CC: Gabriele Duque [facility] unknown DATE OF SERVICE: 11/16/2018 POST-ADMISSION PHYSICIAN EVALUATION HISTORY OF PRESENT ILLNESS: The patient has been admitted for acute in-hospital inpatient rehabilitation. Please see my full consultation note dictation from yesterday and Dunia Rosenbaum's history and physical from earlier today. The patient has now been admitted for acute in-hospital inpatient rehabilitation. PHYSICAL EXAMINATION: VITAL SIGNS: She has been afebrile, pulse 94, respirations 18, blood pressure 115/65. NEUROLOGIC: The left lower extremity is splinted. She has been working in therapies with transfers min assist, sit to stand and bed to wheelchair mod assist. She has been max assist for lower body dressing. CHEST: Clear. CARDIOVASCULAR: Regular rate and rhythm. ABDOMEN: Bowel sounds positive. Nontender. She does have Rees catheter and that is to be removed as per orders. ASSESSMENT: 1. Left trimalleolar fracture status post open reduction and internal fixation on 11/15/2018. Nonweightbearing on the left lower extremity. 2. Gait instability. 3. Hypertension. 4. Initial EtOH intoxication, resolved, without signs of withdrawal. 5. History of aortic dissection. 6. Morbid obesity. 7. Gastroesophageal reflux disease. PLAN: The patient is admitted for acute in-hospital inpatient rehabilitation. From a post-admission physician evaluation perspective, there are no relevant changes since the preadmission screening. Please see the above review, including this note and the history and physical note as far as the prior and current medical and functional conditions and comorbidities. As far as risk of complications, the patient has the above-noted medical comorbidities. The initial plan of care involves the interdisciplinary acute inpatient rehabilitation program with the goal of maximizing her functional independence, so she can hopefully return back to her prior living situation. Measurable functional goals would be for her to become modified independent with basic [facility] [address] [place] [address] HISTORY AND PHYSICAL Name: JUVE ELLIOTTITA COMMACK Room #: 512-P [facility] IN ..#: [id number] Admission: 11/16/18 Attend Phys: Gabriele Duque MD Discharge: 11/27/18 Date of : 59 Report #: [id number] transfers, mobility issues, ADLs, nonweightbearing on the left lower extremity. Prognosis is reasonably good with estimated length of stay probably at least 10 days. We will need to see how she does. Potential barriers would include her multiple medical comorbidities and decreased functional status. <ELECTRONICALLY SIGNED> By: Gabriele Duque MD 12/01/18 1548 [id number] 1518 Gabriele Duque MD /manisha
--- NOTE | 2018-12-01 15:48 | HC ---
[facility] [place] [address] CONSULTATION Name: MADI ELLIOTT KRYSTAL Room #: 512-P [facility] IN M.R.#: [id number] Admission: 11/16/18 Attend Phys: Gabriele Duque MD Discharge: 11/27/18 Date of : 59 Report #: [id number] THIS REPORT FOR: //name// CC: Gabriele Duqeu [facility] unknown DATE OF SERVICE: 11/16/2018 HISTORY OF PRESENT ILLNESS: The patient is a 63-year-old -[place] female who tripped on the lawn and twisted her left ankle. She was noted to have a left trimalleolar fracture and underwent open reduction and internal fixation on 11/15/2018 of the left ankle. She is limited to nonweightbearing. She was intoxicated in the Emergency Department, but noted she had been at a birthday alliance party and typically does not drink much alcohol. PAST MEDICAL HISTORY: Includes breast CA, aortic dissection, repaired at [facility]. History of hypertension, gastroesophageal reflux disease, exogenous obesity. MEDICATIONS: Please see the full medication listing. ALLERGIES: No known drug allergies. HABITS: No history of tobacco abuse. Alcohol, possibly monthly socially. MEDICATIONS: Please see the full medication listing. This includes vitamins, herbals, and supplements as per noted. SOCIAL HISTORY: Lives in a house with her , 3+1 step in, and then another 4 steps to get up to the bedroom. works. There is a daughter involved as well, but she apparently works as well. The patient was premorbidly active, independent, did not utilize any gait aids premorbidly. REVIEW OF SYSTEMS: Did not offer any current complaints of chest pain, shortness of breath or abdominal discomfort. She does have some left ankle pain as expected. PHYSICAL EXAMINATION: GENERAL: A 63-year-old -[place] female, in obvious distress. VITAL SIGNS: Last recorded temperature 98.9, pulse 96, respirations 18, blood pressure is 173/72. She is alert, pleasant, oriented. HEENT: Appeared to be benign. NEUROLOGIC: Cranial nerves grossly intact. Facies are symmetric. Functional range of motion of both upper extremities without obvious focal weakness. DTRs are trace to 1. She does have significant exogenous obesity. Left ankle is splinted. She can wiggle the toes. No focal calf swelling, functional range of [facility] [address] [place] [address] CONSULTATION Name: MADI ELLIOTT [place] Room #: 512-P [facility] IN M.R.#: [id number] Admission: 11/16/18 Attend Phys: Gabriele Duque MD Discharge: 11/27/18 Date of : 59 Report #: [id number] motion of the right lower extremity, strength is a grade 4/5. Tone appeared to be intact. She was mod assist with sit to stand. Gait, too hops, min assist front-wheeled walker. ASSESSMENT: A 63-year-old -[place] female with the following problems: 1. Left trimalleolar fracture, status post open reduction and internal fixation 11/15/2018, nonweightbearing. 2. Hypertension. 3. Initial ETOH intoxication. 4. History of aortic dissection. 5. Exogenous obesity. 7. Gastroesophageal reflux. PLAN: Occupational therapy is to evaluate. She would benefit from a short acute rehab stay to work on maximizing independence, nonweightbearing on left lower extremity so that she can return back to the home setting. Discussed with her getting to the point where she could stay in one floor, likely in her bedroom with her assisting with meals, etc. She does have a bathroom on that level. She is going to need therapy to maximize her independence, getting around and to arrange for appropriate equipment nonweightbearing on that left lower extremity. Insurance precertification issues to be checked in too. <ELECTRONICALLY SIGNED> By: Gabriele Duque MD 12/01/18 1548 1303 0146 Gabriele Duque MD /nt
--- NOTE | 2018-12-01 15:48 | PLAN ---
[facility] [place] [address] REHAB UNIT PLAN OF CARE Name: MADI ELLIOTT KRYSTAL Room #: 512-P [facility] IN M.R.#: [id number] Admission: 11/16/18 Attend Phys: Gabriele Duque MD Discharge: 11/27/18 Date of : 59 Report #: [id number] THIS REPORT FOR: //name// CC: Gabriele Duque [facility] unknown DATE OF SERVICE: 11/18/2018 PROGRESS NOTE/OVERALL PLAN OF CARE SUBJECTIVE: The patient is seen back today in followup. She is in no distress. OBJECTIVE: VITAL SIGNS: Last recorded temperature 98.7, pulse 94, respirations 20, blood pressure 115/65. NEUROLOGIC: She is working in therapies with transfers min assist, gait min assist 6 feet in the parallel bars. Left ankle is dressed. She can wiggle her toes. There is no distal swelling. No calf swelling upon palpation of her right calf. ASSESSMENT: 1. Left trimalleolar fracture status post open reduction and internal fixation on 11/15/2018, nonweightbearing. 2. Gait instability. 3. Hypertension. 4. Initial EtOH intoxication, resolved. 5. History of aortic dissection. 6. Morbid obesity. 7. Gastroesophageal reflux disease. PLAN: The overall plan of care is based on the pre-admission screen, post-admission physician evaluation and information garnered from therapy assessments. 1. Estimated length of stay is probably at least 10 days. 2. Medical prognosis is reasonably good. 3. Anticipated interventions include the interdisciplinary acute inpatient rehabilitation program with PT and OT, rehab nursing assisting, case management involved, interdisciplinary rehab team. 4. Anticipated functional outcomes would be for the patient to become modified independent, nonweightbearing on the left lower extremity at a walker or wheelchair level. 5. Discharge destination would be to the home setting where she lives with family. 6. Expected therapy by discipline includes PT and OT 1 to 1-1/2 hours per day [address] [address] REHAB UNIT PLAN OF CARE Name: LEXIMADI DONGOLA Room #: 512-P [facility] IN .R.#: [id number] Admission: 11/16/18 Attend Phys: Gabriele Duque MD Discharge: 11/27/18 Date of : 59 Report #: [id number] each five days a week throughout the duration of the acute inpatient rehabilitation stay. <ELECTRONICALLY SIGNED> By: Gabriele Duque MD 12/01/18 1548 0921 [id number] Gabriele Duque MD /nt
== END 2018-11-27 12:13 | disposition home health service (06) | DRG 563 ==
PROVIDERS: Nurse Practitioner Family; ADMIT Physical Medicine & Rehabilitation
DX: S82.852A Displaced trimalleolar fracture of left lower leg, initial encounter for closed fracture (principal); I10 Essential (primary) hypertension; K21.9 Gastro-esophageal reflux disease without esophagitis; R26.9 Unspecified abnormalities of gait and mobility; E66.01 Morbid (severe) obesity due to excess calories; K59.00 Constipation, unspecified; W01.0XXA Fall on same level from slipping, tripping and stumbling without subsequent striking against object, initial encounter; Y93.01 Activity, walking, marching and hiking; Y92.096 Garden or yard of other non-institutional residence as the place of occurrence of the external cause; Z85.3 Personal history of malignant neoplasm of breast; F10.129 Alcohol abuse with intoxication, unspecified; Y90.9 Presence of alcohol in blood, level not specified; Z68.39 Body mass index [BMI] 39.0-39.9, adult; Z92.3 Personal history of irradiation; F43.23 Adjustment disorder with mixed anxiety and depressed mood; Z85.41 Personal history of malignant neoplasm of cervix uteri; G47.00 Insomnia, unspecified
CPT/HCPCS: 10112